=== PATIENT | male | born 1980 | race Hispanic/Latino ===

== ENCOUNTER 2020-03-04 19:38 | Emergency (ER) | payer OTHER ==
[~2020-03-04] VITALS: Ht 193 cm; Wt 92.1 kg
[2020-03-04 21:00] VITALS: BP 137/87; TEMP 98.9
== END 2020-03-04 22:30 | disposition home or self-care (01) ==
LOC: ED 19:38
DX: M54.89 Other dorsalgia (principal); W17.89XA Other fall from one level to another, initial encounter; Y92.89 Other specified places as the place of occurrence of the external cause
CPT/HCPCS: 99281

== ENCOUNTER 2020-06-22 15:24 | Emergency (ER) | payer OTHER ==
[~2020-06-22] VITALS: Ht 193 cm; Wt 95.3 kg
[2020-06-22 15:24] VITALS: TEMP 98.7
[2020-06-22 16:43] VITALS: BP 136/88
== END 2020-06-22 16:43 | disposition home or self-care (01) ==
LOC: ED 15:28
DX: S80.12XA Contusion of left lower leg, initial encounter (principal); S80.812A Abrasion, left lower leg, initial encounter; W20.8XXA Other cause of strike by thrown, projected or falling object, initial encounter; Y92.89 Other specified places as the place of occurrence of the external cause
CPT/HCPCS: 99283

== ENCOUNTER 2020-09-23 18:31 | Emergency (ER) | payer OTHER | END 2020-09-23 18:55 | disposition home or self-care (01) | LOC: ED 18:31 | DX: Z20.822 Contact with and (suspected) exposure to COVID-19 (principal) | CPT/HCPCS: 99281 ==

== ENCOUNTER 2021-01-18 19:37 | Emergency (ER) | payer OTHER ==
[~2021-01-18] VITALS: Ht 193 cm; Wt 86.2 kg
[2021-01-18 21:23] VITALS: BP 104/70; TEMP 98.9
== END 2021-01-18 21:31 | disposition home or self-care (01) ==
LOC: ED 19:37
DX: J20.9 Acute bronchitis, unspecified (principal); R06.2 Wheezing; J44.9 Chronic obstructive pulmonary disease, unspecified; Z20.822 Contact with and (suspected) exposure to COVID-19; F17.210 Nicotine dependence, cigarettes, uncomplicated
CPT/HCPCS: 87635; 94664; 96372; 99283; J0696; J2920; U0003

== ENCOUNTER 2021-02-15 13:09 | Emergency (ER) | payer OTHER | END 2021-02-15 13:14 | disposition home or self-care (01) | LOC: ED 13:09 | DX: Z53.21 Procedure and treatment not carried out due to patient leaving prior to being seen by health care provider (principal) | CPT/HCPCS: 99281 ==